=== PATIENT | female | born 1940 | race Caucasian/White ===

== ENCOUNTER 2019-08-23 14:04 | Inpatient (IN) | payer MEDICARE, BC ==
[2019-08-23] MEDS ORDERED: Potassium Chloride 20 MEQ TAB ONE (15:30)
[2019-08-23] MEDS ORDERED: Acetaminophen 650 MG Suppository PR PRN (18:16)
[2019-08-23] MEDS ORDERED: Acetaminophen 325 MG TAB PO PRN (18:16)
--- NOTE | 2019-08-23 19:19 | HP ---
TIME OF ASSESSMENT: 1700. CHIEF COMPLAINT: Chest pain with exertion. HISTORY OF PRESENT ILLNESS: Ms. Carrizales is a very pleasant 79-year-old woman, who looks much younger than stated age. The patient states she has had progressively worsening shortness of breath with exertion since 2-3 months ago as well as chest pain that occurs with exertion, which has become worse in the last 2 weeks. The patient states she is very active [place] and has no shortness of breath with any exertion. 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 She states when it comes on, it is relieved by rest after 15 to 20 minutes. More recently, has become evident even with other activity such as vacuuming her home. She states the pain starts in the left subscapular region wrapping around towards the front of her chest and sometimes into the left side of her neck. She states it is a squeezing/pressure along with stabbing pain. At times, the pain is in the left anterior chest. She reports having an occasional cough and has a history of asthma, but denies any recent changes with her cough or any hemoptysis or sputum. She reports having a stent in the past to the left subclavian artery, which was greater than 10 years ago. Denies having any heart catheterizations or coronary artery stents placed in the past. She reports following with a gatehouse attendant regularly in the [place]. She was under the care of Dr. Gonzalez at the [facility]. She recently moved to this area and therefore has not had any further followup since February of 2019. She states in February, she did undergo a scan of her heart. She has a report for 03/01/2019, of a myocardial perfusion scan which showed normal results. She had a resting left ventricular ejection fraction of 54% and post-stress ejection fraction of 54%. There were no ECG changes noted during the procedure. The patient reports having a history of atrial fibrillation 2 years ago for which she underwent ablation. She was initially seen today at [facility], where she underwent a chest x-ray that was unremarkable and laboratory studies which were notable for potassium of 3.3. Initial troponin was negative and BNP was slightly elevated at 160.7. Laboratory studies otherwise unremarkable including LFTs and a full blood count. BUN was 13, creatinine 0.75, GFR 74. The patient was given 324 mg of aspirin and transferred here for further evaluation/management. She is currently pain free and denies having any shortness of breath or chest pain while at rest. REVIEW OF SYSTEMS: The patient reports having a good appetite. Denies having any nausea or vomiting. No abdominal pain or cramping. Reports having normal bowel movements and denies any urinary symptoms. No recent fevers, chills, or sweats. No lower leg swelling or edema. No calf tenderness. All other review of systems are negative apart from those mentioned above in HPI. PAST MEDICAL HISTORY: 1. History of atrial fibrillation. 2. Hypertension. 3. Hyperlipidemia. 4. Asthma. 5. Osteopenia. PAST SURGICAL HISTORY: 1. Subclavian artery stent placement in 2003. 2. History of ablation for atrial fibrillation 2 years ago. 3. Hysterectomy. SOCIAL HISTORY: The patient denies any tobacco use or alcohol use. No illicit drug use. She lives with her family. PHYSICAL EXAMINATION: GENERAL: The patient appears well developed, well nourished, is in no acute distress. VITAL SIGNS: Temperature 98.1, pulse 68, blood pressure 165/63, respirations 17 , O2 saturation 97% on room air. HEENT: Normocephalic and atraumatic. Pupils are equal, round, and reactive to light. Sclerae without icterus. Oropharynx is clear. NECK: Supple. LUNGS: Clear to auscultation bilaterally without any wheezes, rales, or rhonchi. CARDIAC: Regular rate and rhythm without audible murmurs, rubs, or gallops. Chest wall without any reversible tenderness or deformities. No skin changes. ABDOMEN: Soft, nontender, nondistended. Normoactive bowel sounds present. EXTREMITIES: No lower leg swelling or edema. NEUROLOGIC: Alert and oriented x3. SKIN: Without rash or jaundice. LABORATORY DATA: White blood count 5.9, hemoglobin 12.3, hematocrit 38.3, platelets 312, neutrophils 48.1%. PT 21.9, INR 1.9, PTT 40. Sodium 136, potassium 3.3, chloride 98, anion gap 13, BUN 13, creatinine 0.75, GFR 74, glucose 99, calcium 9.6, total bilirubin 0.8, AST 22, ALT 18, alkaline phosphatase 82. Troponin I negative. BNP 160.7. Total protein 7.2, albumin 4.3. DIAGNOSTIC STUDIES: Chest x-ray done on 08/23/2019. Stable COPD change. Mild cardiomegaly. IMPRESSION AND PLAN: Ms. Carrizales is a pleasant 79-year-old woman, who appears much younger than her stated age, who is very active at baseline, presenting with chest pain on exertion, worsening for the last 2 weeks. She is being admitted for the followin. Acute coronary syndrome rule out. EKG done at [facility] showed no ST changes or T-wave abnormalities. Initial troponin checked there and second troponin checked here were normal. We will continue to trend troponins. She did undergo in a recent PET scan for which she has shown me report and it was normal with an EF of 54%. The patient reports undergoing an echo as well, which we will request from the [facility]. Her gatehouse attendant there was Dr. Gonzalez ; however, she is transferring her care here since she recently moved. Cardiology consult has been placed given the normal scan with her persistent chest pain. She will remain on continuous telemetry monitoring. The patient has been given aspirin at [facility]. We will check lipid panel. 2. Hypokalemia. Potassium has been replaced. We will check a magnesium level as well. Continue to monitor electrolytes and replace as needed. 3. Hypertension. Resume home medications once verified and monitor blood pressure. 4. Hyperlipidemia. Resume home medications once verified. 5. Chronic obstructive pulmonary disease/asthma. The patient is on ProAir. Chest x-ray is unremarkable. We will check a D-dimer, though likelihood of deep vein thrombosis/pulmonary embolism is low. 6. Osteopenia. Resume home medications once verified. 7. Code status full. Her surrogate decision maker is her , Kt Carrizales. The patient's case was discussed with attending who agrees with plan of care as described above. Job ID: [id number] MTDD
[2019-08-23 19:38] LABS: Magnesium 1.9 mg/dL (1.6-2.6)
[2019-08-23 20:22] VITALS: BMI 20.2
[2019-08-23] MEDS ORDERED: PROVENTIL INHALER 6.7 G (200 INHALATIONS) INH PRN (20:46)
[2019-08-23] MEDS ORDERED: Rivaroxaban 10 MG TAB PO SCH (21:00)
[2019-08-23] MEDS ORDERED: Non-Formulary Item 1 EACH (Ibandronate Sodium [Ibandronate Sodium] 150 MG) PO SCH (21:00)
[2019-08-23] MEDS: Ubidecarenone 50 MG CAP PO SCH (21:25)
[2019-08-23] MEDS: Atorvastatin Calcium 20 MG TAB PO SCH (21:25)
[2019-08-24 05:34] LABS: #Basophils 0.1 thou/uL (0.0-0.2); #Eosinphils 0.3 thou/uL (0.0-0.7); #Lymphocytes 2.3 thou/uL (1.20-3.40); #Monocytes 0.5 thou/uL (0.11-0.59); #Neutrophils 2.4 thou/uL (1.40-6.50); %Eosinophils 5.4 % (0.0-10.0); %Lymphocytes 41.1 % (21.0-51.0); %Monocytes 8.5 % (0.0-10.0); Hemoglobin 12.2 g/dL (12.0-16.0); Mean Corpuscular HGB CONC 33.7 g/dL (32.0-36.0); Mean Corpuscular Hemoglobin 30.5 pg (27.0-31.0); Mean Corpuscular Volume 90.4 fL (78.0-98.0); Mean Platelet Volume 7.8 fL (7.4-10.4); Platelet Count 265 thou/uL (130-400); RBC Distribution Width 11.7 % (11.5-14.5); Red Blood Cell (RBC) Count 3.99 mill/uL (4.20-5.40); White Blood Cell (WBC) Count 5.6 thou/uL (4.8-10.8)
[2019-08-24 05:57] LABS: Anion Gap 10 mmol/L (10-20); BUN (Urea Nitrogen) 13 mg/dL (9.8-20.1); Calc. Creatinine Clearance 49 mL/min (70-130); Calcium 9.4 mg/dL (7.8-10.44); Carbon Dioxide 30 mmol/L (23-31); Cardiac Risk 2.8 (Less than 4.5); Chloride 98 mmol/L (98-107); Cholesterol 124 mg/dl (< 200 Desired); Estimated GFR-MDRD 73; Glucose 96 mg/dL (83-110); HDL Cholesterol 44 mg/dL (>60 Neg Risk); LDL Cholesterol, Calculated 65 mg/dL; Potassium 3.6 mmol/L (3.5-5.1); Sodium 134 mmol/L (136-145); Triglycerides 76 mg/dL (Less than 150)
[2019-08-24] MEDS: Calcium Carbonate + Vit D 1 TAB PO SCH (08:21)
[2019-08-24] MEDS ORDERED: Losartan/Hydrochlorothiazide 100 mg/25 mg Tablet PO SCH (09:00)
[2019-08-24] MEDS ORDERED: Ubidecarenone 50 MG CAP PO SCH (09:00)
[2019-08-24] MEDS ORDERED: Rivaroxaban 10 MG TAB PO SCH ×2 (09:00)
[2019-08-24] MEDS ORDERED: Communication Order-Pharmacy FS SCH (14:00)
[2019-08-24] MEDS ORDERED: Aspirin 81 mg Enteric Coated Tablet PO SCH (14:00)
--- NOTE | 2019-08-24 14:57 | PRG ---
DATE OF SERVICE: 08/24/2019 SUBJECTIVE: The patient is seen and examined at the bedside. Her is present in the room during my visit. She has on and off recurrent pain in the chest. At resting, she does not get short of breath or clammy during those episodes. No nausea or vomiting. OBJECTIVE: VITAL SIGNS: Blood pressure is 152/65, pulse is 67, temperature is 97.9, respirations 16, and O2 saturation 97% on room air. HEENT: Head is atraumatic and normocephalic. Eyes are PERRLA. Sclerae are nonicteric. Oral mucosa is moist. NECK: Supple. LUNGS: Clear. HEART: S1 and S2 normal. No S3. No S4. ABDOMEN: Soft, nontender, and nondistended. EXTREMITIES: No clubbing, cyanosis, or edema. NEUROLOGIC: Intact. LABORATORY DATA: Normal CBC. D-dimer is less than 0.27. Sodium of 134, and the rest of chemistry within normal limits. Normal lipids with triglycerides of 76, cholesterol 124, LDL of 65, and HDL 44. Normal kidney function. IMPRESSION: 1. Unstable angina. 2. Hypokalemia, status post potassium replacement. 3. Hypertension. 4. Hyperlipidemia. 5. Chronic obstructive pulmonary disease/asthma on p.r.n. albuterol. 6. Osteopenia. PLAN: We will admit her to the telemetry floor. The patient was seen by healthcare recruiter, wants to do cardiac catheterization on her on Tuesday. She will continue her aspirin 81 mg once a day and statin 20 mg at bedtime, atorvastatin, coenzyme, diltiazem 120 mg once a day. She will be on 40 mg of subcutaneous Lovenox twice a day, metoprolol, losartan, and hydrochlorothiazide and DVT prophylaxis with SCDs. Job ID: [id number]
--- NOTE | 2019-08-24 18:17 | CON ---
DATE OF CONSULTATION: 08/24/2019 REASON FOR CONSULTATION: Unstable angina. HISTORY OF PRESENT ILLNESS: Ms. Carrizales is a very pleasant 79-year old woman. She has a history of left subclavian stenosis and intermittent chest pain. She underwent stress testing with nuclear medicine imaging the last summer with a PET scan, which showed no ischemia, that was done in January 2019, ejection fraction is 50% to 55% The patient recently has been having left posterior chest pain around the left subscapular area, radiates around the side of her chest to the front of her chest, feels like a pressure and at that point, makes her feel short of breath. The patient otherwise has been doing relatively well. She has been active and healthy. She works on a ranch. Otherwise, the patient has been in relatively good physical condition. The patient does not smoke or use tobacco. REVIEW OF SYSTEMS: CONSTITUTIONAL: No significant weight gain or loss. VISION: No changes. HEARING: No changes. PULMONARY: No cough or wheezing. GASTROINTESTINAL: No nausea, vomiting, or diarrhea. SKIN: No rashes. NEUROLOGIC: No unilateral weakness or numbness. PSYCHIATRIC: No unusual depression or anxiety. ALLERGIES: NONE KNOWN. PAST MEDICAL HISTORY: She has a history of left subclavian stenosis and has a stent in her left subclavian, she said it was found on a magnetic resonance angiogram (MRA). PHYSICAL EXAMINATION: GENERAL: This is a pleasant female, looks younger than her chronologic age. VITAL SIGNS: Her blood pressure is 152/65, pulse 67 and regular. HEENT: Eyes, sclerae are nonicteric. Mouth, mucous membranes moist. NECK: Supple. No lymphadenopathy. LUNGS: Clear. CARDIAC: Normal S1, normal S2. There is no murmur, rub, or gallop. ABDOMEN: Soft and nontender. No hepatosplenomegaly. EXTREMITIES: Warm, dry. No clubbing. No cyanosis. There is no edema. She has good popliteal pulses bilaterally. Dorsalis pedis pulses are diminished, but palpable. She has good radial pulses bilaterally. CURRENT LABORATORY DATA: Hemoglobin is 12.2, potassium is 3.6. Troponin initial less than 0.10, followup 0.024. LDL cholesterol was 65. MEDICATIONS AT HOME: Included; 1. Diltiazem. 2. Rivaroxaban. 3. Losartan/HCT. 4. Metoprolol. 5. Atorvastatin. The patient also has a history of paroxysmal atrial fibrillation with previous atrial fibrillation ablation. EKG; sinus rhythm, no acute changes. ASSESSMENT: 1. Unstable angina. 2. History of atrial fibrillation with previous ablation, now maintaining sinus rhythm. 3. Suspect the patient likely has severe underlying coronary artery disease. She said when she gets the episodes of chest pressure, she feels very short of breath, which indicates there is probably a large area of myocardium involved. Discussed cardiac catheterization. Discussed risk of stroke, heart attack, iodine allergy, loss of blood supply to leg or kidney, stent thrombosis, stent restenosis. She understands and wishes to proceed. Since she received Xarelto 20 mg last night, we could not proceed to elective cardiac catheterization today. We will keep her over the weekend, stop the Xarelto and substitute enoxaparin. Plan catheterization on Tuesday. Job ID: [id number]
[2019-08-24] MEDS: Enoxaparin Sodium 40 MG/0.4 ML SYRINGE SC SCH (20:20)
[2019-08-24] MEDS: Ubidecarenone 50 MG CAP PO SCH (20:21)
[2019-08-24] MEDS: Atorvastatin Calcium 20 MG TAB PO SCH (20:21)
[2019-08-25] MEDS ORDERED: Losartan 25 MG TAB PO SCH (09:00)
--- NOTE | 2019-08-25 09:01 | PRG ---
DATE OF SERVICE: 08/25/2019 SUBJECTIVE: The patient is seen and examined at bedside. She does not have any chest pain anymore. She feels good. Her appetite is fair. OBJECTIVE: VITAL SIGNS: Blood pressure is 117/58, pulse is 61, temperature 98.6, respirations 18, O2 saturation is 97% on room air. HEENT: Head is atraumatic and normocephalic. Eyes are PERRLA. Sclerae are nonicteric. Oral mucosa is moist. NECK: Supple. LUNGS: Clear. HEART: S1, S2 normal. ABDOMEN: Soft, nontender, nondistended. EXTREMITIES: No clubbing, cyanosis, or edema. NEUROLOGIC: She is alert and oriented x4. There is no any motor or sensory deficits. LABORATORY DATA: None today. IMPRESSION: 1. Unstable angina, improved. The patient does not have any chest pain anymore. 2. Hypokalemia, corrected. 3. Hypertension. 4. Hyperlipidemia. 5. Chronic obstructive pulmonary disease/asthma, on p.r.n. albuterol. 6. Osteopenia. PLAN: She is admitted sales host to the hospital. She will continue on her current regimen. She will have cardiac catheterization on Tuesday. She will continue on Lovenox twice a day dosing. Job ID: [id number]
[2019-08-25] MEDS: Calcium Carbonate + Vit D 1 TAB PO SCH (09:56)
[2019-08-25] MEDS: Losartan/Hydrochlorothiazide 100 mg/25 mg Tablet PO SCH (09:56)
[2019-08-25] MEDS: Enoxaparin Sodium 40 MG/0.4 ML SYRINGE SC SCH ×2 (09:56→22:09)
[2019-08-25] MEDS: Aspirin 81 mg Enteric Coated Tablet PO SCH (09:56)
[2019-08-25] MEDS: Ubidecarenone 50 MG CAP PO SCH (22:08)
[2019-08-25] MEDS: Atorvastatin Calcium 20 MG TAB PO SCH (22:08)
[2019-08-26] MEDS: Losartan/Hydrochlorothiazide 100 mg/25 mg Tablet PO SCH (09:25)
[2019-08-26] MEDS: Aspirin 81 mg Enteric Coated Tablet PO SCH (09:25)
[2019-08-26] MEDS: Enoxaparin Sodium 40 MG/0.4 ML SYRINGE SC SCH (09:25)
[2019-08-26] MEDS: Calcium Carbonate + Vit D 1 TAB PO SCH (09:26)
--- NOTE | 2019-08-26 11:10 | PRG ---
DATE OF SERVICE: 08/26/2019 SUBJECTIVE: The patient is seen and examined at bedside. She had recurrent chest pain yesterday, which lasted approximately 2 hours and she did not have more chest pain today. OBJECTIVE: VITAL SIGNS: Blood pressure is 132/63, pulse is 58, temperature is 98.2, respirations 18, O2 saturation is 98% on room air. HEENT: Head is atraumatic, normocephalic. Eyes are PERRLA. Sclerae are nonicteric. Oral mucosa is moist. NECK: Supple. LUNGS: Clear. HEART: S1, S2 normal. No S3. No S4. No any murmur. ABDOMEN: Soft, nontender, nondistended. EXTREMITIES: No clubbing, cyanosis, or edema. NEUROLOGIC: She is alert and oriented x4. There is no any motor or sensory deficits. LABORATORY DATA: None. IMPRESSION: 1. Unstable angina. The patient is getting ready for cardiac catheterization for tomorrow. 2. Hypokalemia, corrected. 3. Hypertension, chronic, stable. 4. Hyperlipidemia, chronic, stable. 5. Chronic obstructive pulmonary disease/asthma, chronic, stable on p.r.n. albuterol. 6. Osteopenia. PLAN: We are going to continue her current regimen, which includes statin and aspirin. She is on full dose of Lovenox subcutaneously every 12 hours and beta abhishek, and she will have cardiac catheterization done in the morning. Job ID: [id number]
--- NOTE | 2019-08-26 11:42 | PRG ---
DATE OF SERVICE: 08/26/2019 SUBJECTIVE: Ms. Carrizales feels great. No chest pain or pressure. OBJECTIVE: VITAL SIGNS: Her blood pressure is 132/63 and pulse is 58, it is regular. LUNGS: Clear. CARDIAC: Normal S1 and normal S2. ASSESSMENT: 1. Chest pressure, possibly angina. 2. Hypercholesterolemia. PLAN: She is scheduled for cardiac catheterization tomorrow. Discussed risk of stroke, heart attack, iodine allergy, loss of blood supply to leg or kidney, stent thrombosis, and stent restenosis. She understands and wished to proceed. Job ID: [id number]
[2019-08-26] MEDS: Ubidecarenone 50 MG CAP PO SCH (20:58)
[2019-08-26] MEDS: Atorvastatin Calcium 20 MG TAB PO SCH (20:58)
[2019-08-27] MEDS: Aspirin 81 mg Enteric Coated Tablet PO SCH (05:27)
[2019-08-27] MEDS ORDERED: Sodium Chloride 0.9% 1,000 ML IV SCH (06:00)
[2019-08-27] MEDS ORDERED: Heparin (Artline) 1,000 ML ONE (07:45)
[2019-08-27] MEDS ORDERED: Lidocaine 1% (PF) 30 ML VIAL ONE (07:46)
[2019-08-27] MEDS ORDERED: Fentanyl 100 MCG/2 ML VIAL ONE (08:38)
[2019-08-27] MEDS ORDERED: Midazolam HCl 2 mg/2 ml Vial ONE (08:38)
[2019-08-27] MEDS ORDERED: Nitroglycerin 100MG/250ML BOT 250 ML ONE (08:57)
[2019-08-27] MEDS ORDERED: Nitroglycerin 0.4 MG TAB (25 Tab Bottle) SL PRN (09:28)
[2019-08-27] MEDS ORDERED: Acetaminophen/Codeine 30-300mg Tablet PO PRN ×2 (09:28)
[2019-08-27] MEDS ORDERED: Sodium Chloride 0.9% 200 ML IV PRN (09:28)
[2019-08-27] MEDS ORDERED: Iopamidol 370 76% 100 ML VIAL ONE (10:55)
[2019-08-27 11:54] VITALS: BP 124/59; TEMP 97.5
[2019-08-27] MEDS: Losartan/Hydrochlorothiazide 100 mg/25 mg Tablet PO SCH (13:55)
[2019-08-27] MEDS: Calcium Carbonate + Vit D 1 TAB PO SCH (13:55)
--- NOTE | 2019-08-28 12:47 | DIS ---
DATE OF ADMISSION: 08/24/2019 DATE OF DISCHARGE: 08/27/2019 DISCHARGE DISPOSITION: Home. FOLLOWUP: 1. Follow up with primary care physician, Dr. Rubi in 3 days. 2. Follow up with Cardiology, Dr. Villalobos in 1 week. ALLERGIES: THE PATIENT IS ALLERGIC TO SULFA. DISCHARGE MEDICATIONS: 1. Eliquis 2.5 mg b.i.d. to be started on 29 August 2019, evening. 2. Aspirin 81 mg daily. 3. Sublingual nitroglycerin as needed. 4. Xarelto was discontinued. All other home medications were left unchanged. BRIEF HOSPITAL COURSE: The patient is an 79-year-old female, who presented to the emergency room with chest discomfort. Please refer to the history and physical dated 24 August 2019 for further details. The patient was admitted to the hospital with a diagnosis of chest discomfort concerning for acute coronary syndrome. She was monitored on telemetry unit. She was evaluated by Cardiology, Dr. Villalobos. Her troponins remain negative. There was a delay in cardiac catheterization due to Xarelto. She was placed on Lovenox during this hospital stay. She underwent cardiac catheterization on the day of discharge that showed 30% to 40% RCA disease. Left main, LAD, and circumflex were normal. Xarelto has been transitioned to Eliquis per Dr. Villalobos. Dr. Villalobos recommended 2.5 mg Eliquis b.i.d. due to her age. Low-dose aspirin has been added due to coronary artery disease. She has been cleared by Cardiology for discharge. FINAL DIAGNOSES: 1. Chest discomfort. 2. Coronary artery disease. 3. Atrial fibrillation, on anticoagulation. 4. Hypertension. 5. Hyperlipidemia. 6. Mild intermittent asthma. 7. Hyponatremia. 8. Chronic kidney disease, stage 3. 9. Hypokalemia, replaced. PLAN: Plan of care was discussed with the patient in detail. She stated understanding. Job ID: [id number]
[2019-08-29] MEDS ORDERED: Apixaban 2.5 MG TAB PO SCH (21:00)
== END 2019-08-27 16:21 | disposition home or self-care (01) | DRG 287 ==
LOC: ERS 14:04 → 2SW 20:11 → OBSVTOIN 08-24 14:08
PROVIDERS: ADMIT Internal Medicine; ATTEND Internal Medicine
PROC: 4A023N7 Measurement of Cardiac Sampling and Pressure, Left Heart, Percutaneous Approach (ICD-10-PCS; principal; 2019-08-27)
PROC: B2111ZZ Fluoroscopy of Multiple Coronary Arteries using Low Osmolar Contrast (ICD-10-PCS; 2019-08-27)
PROC: B2151ZZ Fluoroscopy of Left Heart using Low Osmolar Contrast (ICD-10-PCS; 2019-08-27)
DX: I25.110 Atherosclerotic heart disease of native coronary artery with unstable angina pectoris (principal); E87.1 Hypo-osmolality and hyponatremia; E87.6 Hypokalemia; E78.5 Hyperlipidemia, unspecified; J44.9 Chronic obstructive pulmonary disease, unspecified; M85.80 Other specified disorders of bone density and structure, unspecified site; I51.7 Cardiomegaly; I48.91 Unspecified atrial fibrillation; E78.00 Pure hypercholesterolemia, unspecified; Z90.710 Acquired absence of both cervix and uterus; Z95.820 Peripheral vascular angioplasty status with implants and grafts; I12.9 Hypertensive chronic kidney disease with stage 1 through stage 4 chronic kidney disease, or unspecified chronic kidney disease; N18.3 Chronic kidney disease, stage 3 (moderate); J45.20 Mild intermittent asthma, uncomplicated; Z88.2 Allergy status to sulfonamides
CPT/HCPCS: 36415; 76942; 80048; 80061; 83690; 83735; 84443; 85025; 85379; 93005; 93458; 99152; 99153; C1769; J1644; J1650; J2001; J2250; J3010; Q9967

== ENCOUNTER 2021-08-17 11:14 | Outpatient (CLI) | payer MEDICARE, BC | END 2021-08-17 11:15 | disposition home or self-care (01) | LOC: BICRAD 11:14 | PROVIDERS: ATTEND Internal Medicine Critical Care Medicine | DX: R06.00 Dyspnea, unspecified (principal) | CPT/HCPCS: 71046 ==

== ENCOUNTER 2022-07-15 08:22 | Inpatient (IN) | payer MEDICARE, BC ==
[2022-07-15 09:31] LABS: #Eosinphils 0.2 thou/uL (0.0-0.7); #Lymphocytes 1.6 thou/uL (1.20-3.40); #Monocytes 0.6 thou/uL (0.11-0.59); %Basophils 0.3 % (0.0-1.0); %Eosinophils 3.9 % (0.0-10.0); %Lymphocytes 24.6 % (21.0-51.0); %Monocytes 9.1 % (0.0-10.0); %Neutrophils 62.1 % (42.0-75.0); Hemoglobin 13.2 g/dL (12.0-16.0); Mean Corpuscular HGB CONC 32.1 g/dL (32.0-36.0); Mean Corpuscular Hemoglobin 30.3 pg (27.0-31.0); Mean Corpuscular Volume 94.2 fl (78.0-98.0); Mean Platelet Volume 8.5 fL (7.4-10.4); Platelet Count 230 thou/uL (130-400); RBC Distribution Width 12.1 % (11.5-14.5); Red Blood Cell (RBC) Count 4.36 mill/uL (4.20-5.40); White Blood Cell (WBC) Count 6.5 thou/uL (4.8-10.8)
[2022-07-15 09:52] LABS: ALT (SGPT) 16 U/L (8-55); AST (SGOT) 21 U/L (5-34); Albumin 3.9 g/dL (3.4-4.8); Alkaline Phosphatase 106 U/L (40-110); Anion Gap 12 mmol/L (10-20); BUN (Urea Nitrogen) 15 mg/dL (9.8-20.1); Bilirubin, Total 0.9 mg/dL (0.2-1.2); CK (CPK) 95 U/L (29-168); Calc. Creatinine Clearance 0 mL/min (70-130); Carbon Dioxide 25 mmol/L (23-31); Chloride 106 mmol/L (98-107); Estimated GFR 68; Globulin 2.6 g/dL (2.4-3.5); Glucose 113 mg/dL (83-110); Potassium 3.6 mmol/L (3.5-5.1); Protein, Total 6.5 g/dL (5.8-8.1); Sodium 139 mmol/L (136-145)
[2022-07-15 11:12] LABS: Bacteria/HPF None Seen HPF (None Seen); Bilirubin Negative (Negative); Blood, Urine Negative (Negative); Clarity Clear (Clear); Glucose, Urine (Dipstick) Normal (Negative); Ketone, Urine Negative (Negative); Leukocyte 75 Leu/uL (Negative); Nitrite Negative (Negative); Protein, Urine (Dipstick) Negative (Neg-Trace); RBC/HPF 0-3 HPF (0-3); Specific Gravity, Urine 1.008 (1.002-1.036); Squamous Epithelial 0-3 HPF (0-3); Urobilinogen Normal mg/dL (Less than 2); WBC/HPF 0-3 HPF (0-3); pH, Urine 7.5 (5.0-9.0)
[2022-07-15] MEDS ORDERED: Magnesium 2 GM/50 ML(in water) 2 GM in Premix Bag 1 BAG IVPB SCH (12:30)
[2022-07-15 13:14] LABS: Magnesium 2.1 mg/dL (1.6-2.6)
[2022-07-15] MEDS ORDERED: Bisacodyl 5 MG TAB PO PRN (13:45)
[2022-07-15] MEDS ORDERED: Acetaminophen 650 MG Suppository PR PRN (13:45)
[2022-07-15] MEDS ORDERED: Senokot S 8.6-50 MG TAB PO PRN (13:45)
[2022-07-15] MEDS ORDERED: Acetaminophen 325 MG TAB PO PRN (13:45)
[2022-07-15] MEDS ORDERED: Ondansetron ODT 4 MG TAB PO PRN (13:45)
[2022-07-15] MEDS ORDERED: Ondansetron PF 4 MG/2 ML Vial IVP PRN (13:45)
[2022-07-15] MEDS ORDERED: Albuterol 200 PUFF (6.7GM INHALER) INH PRN (13:50)
[2022-07-15] MEDS ORDERED: Metoprolol Tartrate 50 MG TAB ONE (13:53)
[2022-07-15 14:09] LABS: Troponin I Less than 0.010 ng/mL (< 0.028)
[2022-07-15] MEDS ORDERED: Sodium Chloride 0.9% 1,000 ML IV SCH (15:45)
[2022-07-15] MEDS ORDERED: Apixaban 2.5 MG TAB PO SCH (16:00)
[2022-07-15 17:04] LABS: Troponin I Less than 0.010 ng/mL (< 0.028)
[2022-07-15 18:34] VITALS: BMI 20.5
[2022-07-15] MEDS: Apixaban 2.5 MG TAB PO SCH (20:55)
[2022-07-15] MEDS: Atorvastatin Calcium 20 MG TAB PO SCH (20:56)
[2022-07-15] MEDS: Dronedarone HCl 400 MG TAB PO SCH (21:00)
[2022-07-15 23:35] LABS: SARS-CoV-2 NAA Rapid Test Not Detected (NotDetected)
[2022-07-16 04:08] LABS: #Eosinphils 0.2 thou/uL (0.0-0.7); #Lymphocytes 2.4 thou/uL (1.20-3.40); #Monocytes 0.6 thou/uL (0.11-0.59); #Neutrophils 2.5 thou/uL (1.40-6.50); %Basophils 0.7 % (0.0-1.0); %Lymphocytes 41.3 % (21.0-51.0); %Monocytes 10.8 % (0.0-10.0); %Neutrophils 44.2 % (42.0-75.0); Hemoglobin 11.2 g/dL (12.0-16.0); Mean Corpuscular HGB CONC 32.4 g/dL (32.0-36.0); Mean Corpuscular Hemoglobin 30.4 pg (27.0-31.0); Mean Corpuscular Volume 93.6 fl (78.0-98.0); Mean Platelet Volume 9.1 fL (7.4-10.4); Platelet Count 210 thou/uL (130-400); RBC Distribution Width 12.1 % (11.5-14.5); Red Blood Cell (RBC) Count 3.69 mill/uL (4.20-5.40); White Blood Cell (WBC) Count 5.7 thou/uL (4.8-10.8)
[2022-07-16 04:26] LABS: Anion Gap 9 mmol/L (10-20); BUN (Urea Nitrogen) 13 mg/dL (9.8-20.1); Calc. Creatinine Clearance 45 mL/min (70-130); Calcium 8.3 mg/dL (7.8-10.44); Carbon Dioxide 26 mmol/L (23-31); Chloride 106 mmol/L (98-107); Estimated GFR 72; Glucose 115 mg/dL (83-110); Potassium 3.2 mmol/L (3.5-5.1); Sodium 138 mmol/L (136-145)
[2022-07-16] MEDS ORDERED: Electrolyte Replacement Protocol 1 EACH FS SCH (07:15)
[2022-07-16] MEDS: Aspirin 81 mg Enteric Coated Tablet PO SCH (07:52)
[2022-07-16] MEDS: Dronedarone HCl 400 MG TAB PO SCH (07:52)
[2022-07-16] MEDS: Apixaban 2.5 MG TAB PO SCH ×2 (07:52→20:28)
[2022-07-16] MEDS ORDERED: Potassium Chloride 20 MEQ TAB PO SCH (08:00)
[2022-07-16 08:29] LABS: Free T4 (Free Thyroxine) 0.95 ng/dL (0.70-1.48)
[2022-07-16] MEDS ORDERED: Metoclopramide HCl 10 MG/2 ML VIAL IVP PRN (08:42)
[2022-07-16] MEDS: Atorvastatin Calcium 20 MG TAB PO SCH (20:29)
[2022-07-17 03:17] VITALS: TEMP 98
[2022-07-17 04:52] LABS: #Basophils 0.1 thou/uL (0.0-0.2); #Eosinphils 0.3 thou/uL (0.0-0.7); #Lymphocytes 2.1 thou/uL (1.20-3.40); #Monocytes 0.6 thou/uL (0.11-0.59); #Neutrophils 2.7 thou/uL (1.40-6.50); %Basophils 1.2 % (0.0-1.0); %Eosinophils 5.4 % (0.0-10.0); %Monocytes 10.2 % (0.0-10.0); %Neutrophils 47.2 % (42.0-75.0); Hemoglobin 11.9 g/dL (12.0-16.0); Mean Corpuscular HGB CONC 33.3 g/dL (32.0-36.0); Mean Corpuscular Hemoglobin 31.6 pg (27.0-31.0); Mean Corpuscular Volume 94.9 fl (78.0-98.0); Mean Platelet Volume 8.8 fL (7.4-10.4); Platelet Count 208 thou/uL (130-400); RBC Distribution Width 12.1 % (11.5-14.5); Red Blood Cell (RBC) Count 3.76 mill/uL (4.20-5.40); White Blood Cell (WBC) Count 5.8 thou/uL (4.8-10.8)
[2022-07-17 05:19] LABS: Anion Gap 11 mmol/L (10-20); BUN (Urea Nitrogen) 11 mg/dL (9.8-20.1); Calc. Creatinine Clearance 51 mL/min (70-130); Calcium 8.7 mg/dL (7.8-10.44); Carbon Dioxide 24 mmol/L (23-31); Chloride 108 mmol/L (98-107); Estimated GFR 82; Glucose 97 mg/dL (83-110); Potassium 3.9 mmol/L (3.5-5.1); Sodium 139 mmol/L (136-145)
[2022-07-17] MEDS: Apixaban 2.5 MG TAB PO SCH (08:46)
[2022-07-17] MEDS: Aspirin 81 mg Enteric Coated Tablet PO SCH (08:46)
[2022-07-17 10:28] VITALS: BP 141/75
[2022-07-18] MEDS ORDERED: FLU VACC QS2022-23(65YR UP)/PF 240 MCG/0.7 ML SYRINGE IM ONE (09:00)
== END 2022-07-17 12:46 | disposition home or self-care (01) | DRG 312 ==
LOC: ERS 08:22 → ERHOLD 12:58 → 2NO 18:16 → OBSVTOIN 07-16 15:54
PROVIDERS: ADMIT Internal Medicine; ATTEND Physician Assistant
DX: R55 Syncope and collapse (principal); I48.91 Unspecified atrial fibrillation; Z20.822 Contact with and (suspected) exposure to COVID-19; J45.909 Unspecified asthma, uncomplicated; I25.10 Atherosclerotic heart disease of native coronary artery without angina pectoris; E78.5 Hyperlipidemia, unspecified; M85.80 Other specified disorders of bone density and structure, unspecified site; R94.6 Abnormal results of thyroid function studies; E87.6 Hypokalemia; R94.31 Abnormal electrocardiogram [ECG] [EKG]; Z88.2 Allergy status to sulfonamides; Z90.89 Acquired absence of other organs; Z90.710 Acquired absence of both cervix and uterus; Z98.0 Intestinal bypass and anastomosis status; Z79.899 Other long term (current) drug therapy; Z79.82 Long term (current) use of aspirin; Z79.01 Long term (current) use of anticoagulants
CPT/HCPCS: 36415; 70450; 71045; 72125; 80048; 81003; 81015; 82550; 83605; 83735; 84439; 84443; 84481; 84484; 85025; 87040; 87086; 93005; 93880; 94760; 96360; G0378; J7050; U0002

== ENCOUNTER 2022-11-15 05:46 | Day surgery (SDC) | payer MEDICARE, BC ==
[2022-11-11 16:15] VITALS: BMI 20.9
[2022-11-15] MEDS ORDERED: PROPOFOL 200 MG/20 ML VIAL ONE (08:41)
[2022-11-15] MEDS ORDERED: Lidocaine 1% PF 5 ML VIAL ONE (08:41)
[2022-11-15 08:54] LABS: Anion Gap 13 mmol/L (10-20); BUN (Urea Nitrogen) 15 mg/dL (9.8-20.1); Calc. Creatinine Clearance 52 mL/min (70-130); Calcium 9.6 mg/dL (7.8-10.44); Carbon Dioxide 24 mmol/L (23-31); Chloride 107 mmol/L (98-107); Estimated GFR 84; Glucose 102 mg/dL (83-110); Potassium 3.6 mmol/L (3.5-5.1); Sodium 140 mmol/L (136-145)
[2022-11-15 09:00] LABS: #Eosinphils 0.1 thou/uL (0.0-0.7); #Lymphocytes 1.9 thou/uL (1.20-3.40); #Monocytes 0.5 thou/uL (0.11-0.59); #Neutrophils 3.2 thou/uL (1.40-6.50); %Basophils 0.2 % (0.0-1.0); %Lymphocytes 33.2 % (21.0-51.0); %Monocytes 8.5 % (0.0-10.0); %Neutrophils 56.2 % (42.0-75.0); Mean Corpuscular HGB CONC 32.7 g/dL (32.0-36.0); Mean Corpuscular Hemoglobin 30.2 pg (27.0-31.0); Mean Corpuscular Volume 92.5 fl (78.0-98.0); Mean Platelet Volume 8.9 fL (7.4-10.4); Platelet Count 230 10x3/uL (130-400); RBC Distribution Width 13.5 % (11.5-14.5); Red Blood Cell (RBC) Count 3.98 mill/uL (4.20-5.40); White Blood Cell (WBC) Count 5.6 10x3/uL (4.8-10.8)
== END 2022-11-15 10:17 | disposition home or self-care (01) ==
LOC: SDC 05:46
PROVIDERS: ATTEND Internal Medicine Cardiovascular Disease
PROC: 5A2204Z Restoration of Cardiac Rhythm, Single (ICD-10-PCS; principal; 2022-11-15)
DX: I48.19 Other persistent atrial fibrillation (principal); I25.10 Atherosclerotic heart disease of native coronary artery without angina pectoris; I11.0 Hypertensive heart disease with heart failure; I50.42 Chronic combined systolic (congestive) and diastolic (congestive) heart failure; E78.00 Pure hypercholesterolemia, unspecified; I34.0 Nonrheumatic mitral (valve) insufficiency; J45.909 Unspecified asthma, uncomplicated; M85.80 Other specified disorders of bone density and structure, unspecified site; Z79.01 Long term (current) use of anticoagulants; Z79.82 Long term (current) use of aspirin; Z79.899 Other long term (current) drug therapy; Z88.2 Allergy status to sulfonamides
CPT/HCPCS: 36415; 80048; 85025; 92960; 93005; 93010; J2704

== ENCOUNTER 2023-07-24 13:02 | Inpatient (IN) | payer MEDICARE, BC ==
[2023-07-24] MEDS ORDERED: fentaNYL 50 mcg/mL 1 mL Vial ONE (13:36)
[2023-07-24] MEDS ORDERED: Iopamidol-370 76% 500 ML MDV (1 ML CHARGE) ONE (13:58)
[2023-07-24 14:25] LABS: #Basophils 0.1 thou/uL (0.0-0.2); #Eosinphils 0.1 thou/uL (0.0-0.7); #Monocytes 0.4 thou/uL (0.11-0.59); #Neutrophils 4.9 thou/uL (1.40-6.50); %Basophils 0.8 % (0.0-1.0); %Eosinophils 1.7 % (0.0-10.0); Hematocrit 31.2 % (36.0-47.0); Hemoglobin 10.3 g/dL (12.0-16.0); Mean Corpuscular Hemoglobin 30.8 pg (27.0-31.0); Mean Corpuscular Volume 93.4 fl (78.0-98.0); Mean Platelet Volume 10.9 fL (7.4-10.4); Platelet Count 230 10x3/uL (130-400); RBC Distribution Width 13.1 % (11.5-14.5); Red Blood Cell (RBC) Count 3.34 mill/uL (4.20-5.40); White Blood Cell (WBC) Count 6.5 10x3/uL (4.8-10.8)
[2023-07-24 14:40] LABS: INR-International Normal Ratio 1.4; PTT 30.5 sec (22.9-36.1); Prothrombin Time 17.6 sec (12.0-14.7)
[2023-07-24 14:53] LABS: ALT (SGPT) 40 U/L (8-55); AST (SGOT) 41 U/L (5-34); Albumin 4.1 g/dL (3.4-4.8); Alkaline Phosphatase 92 U/L (40-110); Anion Gap 16 mmol/L (10-20); BUN (Urea Nitrogen) 16 mg/dL (9.8-20.1); Bilirubin, Total 1.1 mg/dL (0.2-1.2); Calc. Creatinine Clearance 0 mL/min (70-130); Calcium 8.8 mg/dL (7.8-10.44); Carbon Dioxide 24 mmol/L (23-31); Chloride 103 mmol/L (98-107); Estimated GFR 61; Globulin 2.2 g/dL (2.4-3.5); Glucose 129 mg/dL (83-110); Lipase 18 U/L (8-78); Potassium 3.1 mmol/L (3.5-5.1); Protein, Total 6.3 g/dL (5.8-8.1); Sodium 140 mmol/L (136-145)
[2023-07-24 14:54] LABS: Troponin I Less than 0.010 ng/mL (< 0.028)
[2023-07-24] MEDS ORDERED: Morphine 4 MG/ML VIAL ONE (16:02)
[2023-07-24] MEDS ORDERED: Ipratropium/Albuterol 3 ML NEB NEB PRN (16:48)
[2023-07-24] MEDS ORDERED: Ondansetron PF 4 MG/2 ML Vial IVP PRN (16:48)
[2023-07-24] MEDS ORDERED: Sodium Chloride 0.9% 1,000 ML IV SCH (17:00)
[2023-07-24] MEDS: Morphine 2 MG/ML VIAL SLOW IVP PRN ×2 (20:43→23:50)
[2023-07-24] MEDS: Atorvastatin Calcium 20 MG TAB PO SCH (20:44)
[2023-07-24] MEDS: Sacubitril 49 MG/Valsartan 51 MG TABLET PO SCH (20:44)
[2023-07-24] MEDS: Acetaminophen 500 MG TAB PO SCH ×2 (20:44→23:47)
[2023-07-24] MEDS ORDERED: Famotidine/PF 20 mg/2ml Vial SLOW IVP SCH (21:00)
[2023-07-24 21:40] VITALS: BMI 20.7
[2023-07-25] MEDS: Morphine 2 MG/ML VIAL SLOW IVP PRN (06:36)
[2023-07-25] MEDS: Acetaminophen 500 MG TAB PO SCH ×2 (06:37→08:37)
[2023-07-25 07:52] LABS: #Monocytes 0.9 thou/uL (0.11-0.59); #Neutrophils 5.3 thou/uL (1.40-6.50); %Basophils 0.5 % (0.0-1.0); %Eosinophils 0.3 % (0.0-10.0); %Lymphocytes 16.5 % (21.0-51.0); %Monocytes 11.9 % (0.0-10.0); %Neutrophils 70.4 % (42.0-75.0); Hemoglobin 9.5 g/dL (12.0-16.0); Mean Corpuscular HGB CONC 32.8 g/dL (32.0-36.0); Mean Corpuscular Hemoglobin 30.9 pg (27.0-31.0); Mean Corpuscular Volume 94.5 fl (78.0-98.0); Mean Platelet Volume 11.6 fL (7.4-10.4); Platelet Count 220 10x3/uL (130-400); RBC Distribution Width 13.3 % (11.5-14.5); Red Blood Cell (RBC) Count 3.07 mill/uL (4.20-5.40); White Blood Cell (WBC) Count 7.5 10x3/uL (4.8-10.8)
[2023-07-25 08:04] LABS: Anion Gap 14 mmol/L (10-20); BUN (Urea Nitrogen) 13 mg/dL (9.8-20.1); Calc. Creatinine Clearance 48 mL/min (70-130); Calcium 8.4 mg/dL (7.8-10.44); Carbon Dioxide 27 mmol/L (23-31); Chloride 102 mmol/L (98-107); Estimated GFR 77; Glucose 105 mg/dL (83-110); Potassium 2.8 mmol/L (3.5-5.1); Sodium 140 mmol/L (136-145)
[2023-07-25 08:15] LABS: INR-International Normal Ratio 1.2; PTT 30.2 sec (22.9-36.1); Prothrombin Time 15.8 sec (12.0-14.7)
[2023-07-25] MEDS: Sacubitril 49 MG/Valsartan 51 MG TABLET PO SCH ×2 (08:36→20:56)
[2023-07-25] MEDS ORDERED: Acetaminophen 650 MG/20.3 ML UDCUP PO SCH (13:30)
[2023-07-25] MEDS: Acetaminophen/Codeine 30-300mg Tablet PO PRN ×2 (13:41→20:56)
[2023-07-25] MEDS ORDERED: Potassium Chloride 20 MEQ TAB PO SCH (16:15)
[2023-07-25] MEDS: Acetaminophen 325 MG TAB PO SCH (16:55)
[2023-07-25] MEDS: Atorvastatin Calcium 20 MG TAB PO SCH (20:56)
[2023-07-25] MEDS: Famotidine/PF 20 mg/2ml Vial SLOW IVP SCH (20:57)
[2023-07-26] MEDS: Acetaminophen 325 MG TAB PO SCH ×5 (00:09→23:22)
[2023-07-26] MEDS: Acetaminophen/Codeine 30-300mg Tablet PO PRN ×2 (05:07→20:36)
[2023-07-26 06:43] LABS: ALT (SGPT) 29 U/L (8-55); AST (SGOT) 28 U/L (5-34); Albumin 3.5 g/dL (3.4-4.8); Alkaline Phosphatase 83 U/L (40-110); Anion Gap 11 mmol/L (10-20); BUN (Urea Nitrogen) 10 mg/dL (9.8-20.1); Bilirubin, Total 0.8 mg/dL (0.2-1.2); Calc. Creatinine Clearance 47 mL/min (70-130); Calcium 8.4 mg/dL (7.8-10.44); Carbon Dioxide 30 mmol/L (23-31); Chloride 103 mmol/L (98-107); Estimated GFR 75; Globulin 2.2 g/dL (2.4-3.5); Glucose 103 mg/dL (83-110); Magnesium 1.9 mg/dL (1.6-2.6); Potassium 3.5 mmol/L (3.5-5.1); Protein, Total 5.7 g/dL (5.8-8.1); Sodium 140 mmol/L (136-145)
[2023-07-26] MEDS: Sacubitril 49 MG/Valsartan 51 MG TABLET PO SCH ×2 (08:47→20:37)
[2023-07-26] MEDS ORDERED: CEFAZOLIN 2 GM in Sodium Chloride 0.9% 100 ML IVPB SCH (12:30)
[2023-07-26] MEDS ORDERED: fentaNYL 50 mcg/mL 1 mL Vial ONE (13:06)
[2023-07-26] MEDS ORDERED: HYDROmorphone 0.5 MG/0.5 ML SYRINGE ONE (13:07)
[2023-07-26] MEDS ORDERED: Dexmedetomidine 200 MCG/2 ML VIAL ONE (13:07)
[2023-07-26] MEDS ORDERED: CEFAZOLIN 2 GM VIAL ONE (13:30)
[2023-07-26] MEDS ORDERED: Sodium Chloride 0.9% 100 ML ONE (13:30)
[2023-07-26] MEDS ORDERED: Ondansetron PF 4 MG/2 ML Vial ONE (13:55)
[2023-07-26] MEDS ORDERED: PROPOFOL 200 MG/20 ML VIAL ONE (13:55)
[2023-07-26] MEDS ORDERED: ePHEDrine Sulfate 50 MG/10 ML VIAL ONE (13:55)
[2023-07-26] MEDS ORDERED: Glycopyrrolate 0.2 MG/ML 5 ML SYRINGE ONE (13:55)
[2023-07-26] MEDS ORDERED: Promethazine HCl 25 MG/ML VIAL IM PRN (14:48)
[2023-07-26] MEDS ORDERED: Ondansetron HCl/PF 4 MG/2 ML Vial IVP PRN (14:48)
[2023-07-26] MEDS ORDERED: HYDROmorphone 2 MG/ML VIAL SLOW IVP PRN (14:48)
[2023-07-26] MEDS: Atorvastatin Calcium 20 MG TAB PO SCH (20:35)
[2023-07-26] MEDS: Famotidine/PF 20 mg/2ml Vial SLOW IVP SCH (20:35)
[2023-07-26] MEDS: CEFAZOLIN 2 GM in Sodium Chloride 0.9% 100 ML IVPB SCH (22:26)
[2023-07-27] MEDS: Acetaminophen 325 MG TAB PO SCH ×4 (05:57→23:59)
[2023-07-27] MEDS: Acetaminophen/Codeine 30-300mg Tablet PO PRN ×2 (05:57→11:35)
[2023-07-27] MEDS: CEFAZOLIN 2 GM in Sodium Chloride 0.9% 100 ML IVPB SCH ×2 (05:58→14:30)
[2023-07-27 06:00] LABS: #Eosinphils 0.1 thou/uL (0.0-0.7); #Monocytes 0.8 thou/uL (0.11-0.59); #Neutrophils 4.8 thou/uL (1.40-6.50); %Basophils 0.4 % (0.0-1.0); %Eosinophils 1.7 % (0.0-10.0); %Lymphocytes 17.7 % (21.0-51.0); %Monocytes 11.4 % (0.0-10.0); %Neutrophils 68.4 % (42.0-75.0); Hematocrit 25.6 % (36.0-47.0); Hemoglobin 8.4 g/dL (12.0-16.0); Mean Corpuscular HGB CONC 32.8 g/dL (32.0-36.0); Mean Corpuscular Hemoglobin 31.6 pg (27.0-31.0); Mean Corpuscular Volume 96.2 fl (78.0-98.0); Mean Platelet Volume 10.9 fL (7.4-10.4); Platelet Count 201 10x3/uL (130-400); RBC Distribution Width 13.5 % (11.5-14.5); Red Blood Cell (RBC) Count 2.66 mill/uL (4.20-5.40)
[2023-07-27] MEDS: Ascorbic Acid 500 mg Chewable Tablet PO SCH ×2 (08:50→20:50)
[2023-07-27] MEDS: Ferrous Sulfate 325 MG TAB PO SCH ×2 (08:50→17:42)
[2023-07-27] MEDS: Sacubitril 49 MG/Valsartan 51 MG TABLET PO SCH ×2 (08:51→20:51)
[2023-07-27] MEDS: Famotidine/PF 20 mg/2ml Vial SLOW IVP SCH (20:50)
[2023-07-27] MEDS: Atorvastatin Calcium 20 MG TAB PO SCH (20:50)
[2023-07-28 05:36] LABS: #Eosinphils 0.2 thou/uL (0.0-0.7); #Monocytes 0.8 thou/uL (0.11-0.59); #Neutrophils 5.4 thou/uL (1.40-6.50); %Basophils 0.4 % (0.0-1.0); %Eosinophils 2.8 % (0.0-10.0); %Lymphocytes 17.7 % (21.0-51.0); %Monocytes 9.6 % (0.0-10.0); %Neutrophils 69.2 % (42.0-75.0); Hematocrit 24.5 % (36.0-47.0); Hemoglobin 8.1 g/dL (12.0-16.0); Mean Corpuscular HGB CONC 33.1 g/dL (32.0-36.0); Mean Corpuscular Hemoglobin 31.5 pg (27.0-31.0); Mean Corpuscular Volume 95.3 fl (78.0-98.0); Platelet Count 214 10x3/uL (130-400); RBC Distribution Width 13.4 % (11.5-14.5); Red Blood Cell (RBC) Count 2.57 mill/uL (4.20-5.40); White Blood Cell (WBC) Count 7.8 10x3/uL (4.8-10.8)
[2023-07-28] MEDS: Acetaminophen 325 MG TAB PO SCH ×3 (06:11→17:11)
[2023-07-28] MEDS: Ascorbic Acid 500 mg Chewable Tablet PO SCH (08:27)
[2023-07-28] MEDS: Ferrous Sulfate 325 MG TAB PO SCH ×2 (08:27→17:11)
[2023-07-28] MEDS: Acetaminophen/Codeine 30-300mg Tablet PO PRN (08:39)
[2023-07-28] MEDS: Sacubitril 49 MG/Valsartan 51 MG TABLET PO SCH (08:48)
[2023-07-28] MEDS ORDERED: Apixaban 2.5 MG TAB PO SCH (09:00)
[2023-07-28] MEDS ORDERED: Senokot S 8.6-50 MG TAB PO SCH (09:00)
[2023-07-28] MEDS ORDERED: Polyethylene Glycol 3350 17 GM Packet PO SCH (09:00)
[2023-07-28 15:25] VITALS: BP 108/60; TEMP 98.1
== END 2023-07-28 19:06 | DRG 956 ==
LOC: ERS 13:02 → SURG A 16:48
PROVIDERS: ADMIT Specialist; ATTEND Specialist
PROC: 0QS604Z Reposition Right Upper Femur with Internal Fixation Device, Open Approach (ICD-10-PCS; principal; 2023-07-26)
DX: S72.141A Displaced intertrochanteric fracture of right femur, initial encounter for closed fracture (principal); S32.591A Other specified fracture of right pubis, initial encounter for closed fracture; I48.91 Unspecified atrial fibrillation; I10 Essential (primary) hypertension; E78.5 Hyperlipidemia, unspecified; J45.909 Unspecified asthma, uncomplicated; M85.80 Other specified disorders of bone density and structure, unspecified site; E87.6 Hypokalemia; I25.10 Atherosclerotic heart disease of native coronary artery without angina pectoris; J44.9 Chronic obstructive pulmonary disease, unspecified; Z79.899 Other long term (current) drug therapy; Z90.710 Acquired absence of both cervix and uterus; Z79.01 Long term (current) use of anticoagulants; Z90.89 Acquired absence of other organs; Z88.2 Allergy status to sulfonamides; Z79.82 Long term (current) use of aspirin; W10.8XXA Fall (on) (from) other stairs and steps, initial encounter
CPT/HCPCS: 36415; 70450; 71045; 71260; 72125; 72170; 74177; 80048; 80053; 83605; 83690; 83735; 84100; 84443; 84484; 85025; 85610; 85730; 93005; 96374; 96375; C1713; G0390; J1170; J2270; J2272; J2405; J2704; J3010; J3490; J7050; Q9967; S0028